=== PATIENT | female | born 1995 | race Two or more races ===

== ENCOUNTER 2024-05-20 18:04 | Emergency (ER) | payer MEDICAID, SELFPAY ==
[2024-05-20 18:54] VITALS: BP 137/85; PULSE 90; RESP 16; TEMP 37; O2SAT 100; BMI 21.4
--- NOTE | 2024-05-20 18:57 | PD.EDRME ---
Rapid Medical Screening Exam [facility] Arrival date/time: 05/20/24 18:04 Chief Complaint: Vaginal Bleeding Time Seen by Provider: 05/20/24 18:56 Vital signs: Vital Signs Temperature 98.6 F 05/20/24 18:54 Pulse Rate 90 05/20/24 18:54 Respiratory Rate 16 05/20/24 18:54 Blood Pressure 137/85 H 05/20/24 18:54 Pulse Oximetry (%) 100 05/20/24 18:54 Oxygen Delivery Method Room Air 05/20/24 18:54 RME Narrative: 29-year-old female who is presenting with spotting. Patient states she had a baby a year ago and has been breast-feeding she has also been on the minipill she is she does not know what her LMP was. Spotting for 1 day. She took an hCG at home 2 weeks ago which was positive.
--- NOTE | 2024-05-20 18:59 | XR_ITS ---
Examination: Complete OB ultrasound, less than 14 weeks, transabdominal Date and time of exam: May 20, 2024 1121 hrs. Indications: Vaginal bleeding beginning 2 days ago Technique: Obstetrical ultrasound images less than 14 weeks performed via transabdominal imaging Findings: A normal shaped single intrauterine gestation is present in the uterus. pole 0.7 cm corresponds to 6 weeks 4 days gestational age Cardiac motion 129 BPM Ultrasonographic survey of visible and placental structures unremarkable. Amniotic fluid volume appears appropriate for this estimated gestational age. Right ovary 2.9 x 2.3 x 2.5 cm arterial flow Left ovary obscured by bowel gas Impression: Viable intrauterine gestation 6 weeks 4 days.
[2024-05-20 19:47] LABS: Basophils # (Auto) 0.1 Thou/mm3 (0.0-0.2); Basophils % (Auto) 1 % (0-2.5); Eosinophils # (Auto) 0.1 Thou/mm3 (0.0-0.5); Eosinophils % (Auto) 1 % (0-10); Hematocrit 37.9 % (36.0-46.0); Hemoglobin 12.6 g/dL (12.0-16.0); Immature Granulocytes % (Auto) 0 % (0-0); Immature Granulocytes Auto 0.04 Thou/mm3 (0.00-0.00); Lymphocytes # (Auto) 2.2 Thou/mm3 (1.0-4.8); Lymphocytes % (Auto) 19 % (10-50); Mean Corpuscular HGB Conc 33.2 g/dl (31.0-37.0); Mean Corpuscular Hemoglobin 29.7 pg (25.0-35.0); Mean Corpuscular Volume 89 fL (80-100); Monocytes # (Auto) 0.7 Thou/mm3 (0.0-0.8); Monocytes % (Auto) 6 % (0-12); Neutrophils # (Auto) 8.4 Thou/mm3 (1.8-7.7); Neutrophils % (Auto) 74 % (37-80); Nucleated Red Blood Cell % 0 /100 WBC (0); Platelet Count 263 Thou/mm3 (140-440); RDW Standard Deviation 41.3 fL (36.4-46.3); Red Blood Count 4.24 Miln/mm3 (4.00-5.20); White Blood Count 11.4 Thou/mm3 (3.6-11.0)
[2024-05-20 20:03] LABS: Collection Type, Urine Voided; RBC,Urine 0 /hpf (0-3); WBC,Urine 0 /hpf (0-5)
[2024-05-20 20:16] LABS: Bilirubin,Urine Negative (Negative); Blood,Urine Negative (Negative); Clarity,Urine Turbid (Clear/Hazy); Color,Urine Yellow (Lt Yel-Yel); Glucose, Urine Negative (Negative); Ketones,Urine Negative (Negative); Leukocyte Esterase,Urine Negative (Negative); Nitrite,Urine Negative (Negative); PH,Urine 6.5 (5.0-7.0); Protein,Urine Trace (Neg - Trace); Specific Gravity,Urine 1.028 (1.001-1.035); Squamous Epithelial Cell,Urine 13 /hpf (0-5); Urobilinogen,Urine Negative mg/dL (0.0-1.0)
[2024-05-20 20:18] LABS: Alanine Aminotransferase < 7 U/L (10-49); Albumin, Serum 4.8 gm/dL (3.5-5.0); Albumin/Globulin Ratio 1.7 (1.2-2.2); Alkaline Phosphatase 79 U/L (46-116); Anion Gap 9 (7-16); Aspartate Amino Transferase < 10 U/L (0-34); BUN/Creatinine Ratio 14 Ratio (12-20); Bilirubin,Total 0.4 mg/dL (0.3-1.2); Blood Urea Nitrogen 7 mg/dL (9-23); Calcium 9.6 mg/dL (8.3-10.6); Calcium (Corrected) 9.6 mg/dL (8.5-10.1); Chloride 102 mMol/L (98-107); Creatinine (Component) 0.5 mg/dL (0.6-1.3); Estimated Creatinine Clearance 136.1 mL/min (>60); Globulin 2.8 gm/dL (2.3-3.5); Glucose 89 mg/dL (74-106); Osmolality,Calculated 267 (275-295); Potassium 3.7 mMol/L (3.4-5.1); Sodium 135 mMol/L (136-145); Total Protein 7.6 gm/dL (5.7-8.2); eGFR > 60 See Note
--- NOTE | 2024-05-21 00:27 | PD.EDPREG ---
ED OB Contraction Preg RMI/HPI General Chief complaint: Vaginal Bleeding Stated complaint: VAGINAL PAIN / SPOTTING AND Time Seen by Provider: 05/20/24 18:56 Arrival date/time: 05/20/24 18:04 29 year old female present to emergency room with c/o of vaginal spotting and pain for a 4 days. home test positive 2 weeks ago LOCATION: suprapubic SEVERITY: Symptoms are described as being severe with limitations on activities of daily living QUALITY: Symptoms are described as being cramping CONTEXT: The patient is unable to identify any inciting events. DURATION/TIMING: The symptoms started approximately 4 day ago and have been waxing/waning but always present without ever completely resolving. ASSOCIATED SYMPTOMS: The patient is unable to identify any other associated symptoms. MODIFYING FACTORS: The patient is unable to identify any alleviating or aggravating symptoms. PERTINENT ROS: denies trauma, denies domestic violence, no dysuria or hematuria, no orthostatic symptoms, no nausea or vomiting, no fevers, no anorexia, no diarrhea or constipation REVIEW OF SYSTEMS: See History of Present Illness - with the exception of those mentioned in the history of present illness, all other systems reviewed and reported as negative GENERAL: In general the patient is awake, interactive, in an emergency department gurney. HEAD/EYES/EARS/NOSE/THROAT: normo-cephalic, atraumatic, mucus membranes are moist, anicteric, palpebral conjunctiva is pink, trachea is midline. CARDIOVASCULAR: regular rate and regular rhythm, no murmurs, heart sounds are not distant, strong pulses in all four extremities that are equal and symmetric bilateral upper and lower extremities, normal capillary refill. CHEST/PULMONARY: normal chest rise and fall, good air movement, clear to auscultation bilaterally, normal inspiratory to expiratory ratios without evidence of respiratory distress. NECK: No midline/Paraspinal tenderness, no step off ROM/Strenght intact No Kernig and bruzinski sign. No trauma ABDOMEN: soft, not tender, no masses appreciated BACK: normal range of motion without pain. NEUROLOGICAL: cranio-facial features are symmetric, moves all four extremities equally without obvious limitations or weakness. EXTREMITY: no tenderness to palpation over the long bones or large joints of the bilateral upper and lower extremities, no joint swelling, no joint erythema, no signs of trauma, no unilateral leg swelling and no peripheral edema. SKIN: warm, dry, well-perfused, no jaundice, no rash, no telangiectasias or petechia. PSYCH: calm, cooperative, no evidence of psychosis or agitation RME / HPI RME / HPI Narrative: 29-year-old female who is presenting with spotting. Patient states she had a baby a year ago and has been breast-feeding she has also been on the minipill she is she does not know what her LMP was. Spotting for 1 day. She took an hCG at home 2 weeks ago which was positive. Related Data Home Medications ?Medication ?Instructions ?Recorded ?Confirmed vits no.129-ferrous fum 1 tab PO QDAY 05/19/23 05/19/23 27 mg iron-folic acid 800 mcg tablet ( One Daily) Previous Rx's ?Medication ?Instructions ?Recorded ibuprofen 600 mg tablet 600 mg PO Q6H PRN pain #30 tabs 05/19/23 promethazine 12.5 mg tablet 12.5 mg PO TID PRN nausea and 05/21/24 vomiting #30 tabs Allergies Allergy/AdvReac Type Severity Reaction Status Date / Time hydrocodone Allergy Severe SEIZURE Verified 05/20/24 18:06 Course Course Course Narrative: US: A normal shaped single intrauterine gestation is present in the uterus. pole 0.7 cm corresponds to 6 weeks 4 days gestational age Cardiac motion 129 BPM Ultrasonographic survey of visible and placental structures unremarkable. Amniotic fluid volume appears appropriate for this estimated gestational age. Right ovary 2.9 x 2.3 x 2.5 cm arterial flow Left ovary obscured by bowel gas Impression: Viable intrauterine gestation 6 weeks 4 days. This patient presents with vaginal bleeding in the first trimester. DDX includes ectopic, IUP, threatened/inevitable , along with completed . Patient is HDS and without a history of coagulopathy or infectious symptoms. Doubt alternate acute emergent pathology. Plan: bHCG, +/- basic labs, type and screen, TVUS, reassess Quality Measures none Orders Category Date Time Status US OB <= 14 weeks fetus Stat Exams 05/20/24 18:59 Completed ABO/RH Type Stat Lab 05/20/24 19:35 Completed Beta HCG,Quantitative Stat Lab 05/21/24 00:29 Received CBC Stat Lab 05/20/24 19:35 Completed CMP [Comprehensive Metabolic Panel] Stat Lab 05/20/24 19:35 Completed Urinalysis Stat Lab 05/20/24 19:45 Completed Vital Signs Vital signs: Vital Signs Temperature 98.6 F 05/20/24 18:54 Pulse Rate 90 05/20/24 18:54 Respiratory Rate 16 05/20/24 18:54 Blood Pressure 137/85 H 05/20/24 18:54 Pulse Oximetry (%) 100 05/20/24 18:54 Oxygen Delivery Method Room Air 05/20/24 18:54 OB/Uterine Contractions Patient data External records reviewed:: Other (specify) Clinical information provided by:: patient Social determinants that could affect healthcare access:: none Patient has the following chronic illnesses:: none How is presenting disease/condition affected by chronic disease/condition?: no chronic disease Evaluation data The following diagnostics were reviewed and interpreted by me:: lab results and radiology exam(s) Lab and/or radiology exams considered but not ordered:: none Interpretation Summary: US: A normal shaped single intrauterine gestation is present in the uterus. pole 0.7 cm corresponds to 6 weeks 4 days gestational age Cardiac motion 129 BPM Ultrasonographic survey of visible and placental structures unremarkable. Amniotic fluid volume appears appropriate for this estimated gestational age. Right ovary 2.9 x 2.3 x 2.5 cm arterial flow Left ovary obscured by bowel gas Impression: Viable intrauterine gestation 6 weeks 4 days. Medications / Prescriptions Medications or Prescriptions considered but not ordered:: none Medication administrations:: none Consultations Consultation(s) initiated? (list below): No Diagnosis OB Contractions Differential Diagnosis: other (miscarriage, UTI, ectopic, ) Most likely diagnosis given after review of the tests above:: vaginal bleeding during Admission Indicated Explain why admission is indicated or not indicated:: none Admission Request Was there a request for admission?: No Disposition Plan Disposition Plan: Discharge Discharge Attestation Discharge Attestation: The patient and all family members were given an opportunity to ask questions and understood the discharge instructions. Discharge instructions specifically effects, indications for sooner follow up or return to the emergency department, and the expected course of current diagnosis. Patient condition: Stable Discharge Plan Plan Patient Disposition: HOME (Self Care) Health Concerns: Follow with PMD/OB as directed Return to ED if sx worsen Prescriptions/Referrals Prescriptions/Med Rec: New promethazine 12.5 mg tablet 12.5 mg PO TID PRN (Reason: nausea and vomiting) Qty: 30 0RF No Action One Daily 27 mg iron- 800 mcg tablet 1 tab PO QDAY Patient Comments: Take 1 tablet by mouth once a day ibuprofen 600 mg tablet 600 mg PO Q6H PRN (Reason: pain) Qty: 30 0RF Referrals: No Primary/Family,Physician [Primary Care Provider] - In 1 week Problem List Clinical Impression: Vaginal bleeding during Patient/Caregiver Discharge Instructions Education Materials: Bleeding During Early Print Language: Romanian Stand Alone Forms: [facility]dee Award Info., Patient Portal Info Letter
[2024-05-21 01:04] VITALS: BP 121/78; PULSE 72; RESP 16; TEMP 36.8; O2SAT 99
[2024-05-21 02:03] LABS: Beta HCG,Quantitative 120883 mIU/mL (<5.0)
== END 2024-05-21 01:06 | disposition home or self-care (01) ==
PROVIDERS: Physician Assistant; Emergency Provider Emergency Medicine
DX: O20.9 Hemorrhage in early pregnancy, unspecified (principal); Z3A.01 Less than 8 weeks gestation of pregnancy
CPT/HCPCS: 36415; 76801; 80053; 81001; 84702; 85025; 86900; 86901; 99284

== ENCOUNTER 2024-12-17 07:19 | Observation (INO) | payer MEDICAID, SELFPAY ==
[2024-12-17 07:20] VITALS: BP 112/72; PULSE 77; RESP 18; RESP 98; TEMP 36.6; BMI 26.6
[2024-12-17 07:24] VITALS: BP 112/72; PULSE 82; PULSE 87; RESP 18; TEMP 36.6; O2SAT 97
[2024-12-17 07:29] VITALS: PULSE 90; O2SAT 97
[2024-12-17 07:34] VITALS: PULSE 84; O2SAT 94
[2024-12-17 07:35] VITALS: PULSE 88; O2SAT 94
[2024-12-17 07:51] VITALS: BP 108/66; PULSE 73; RESP 18
== END 2024-12-17 07:50 | disposition home or self-care (01) ==
PROVIDERS: Admitting Provider Obstetrics & Gynecology; Visit Provider Obstetrics & Gynecology
DX: O47.1 False labor at or after 37 completed weeks of gestation (principal); Z3A.37 37 weeks gestation of pregnancy
CPT/HCPCS: 59899

== ENCOUNTER 2024-12-17 15:14 | Inpatient (IN) | payer MEDICAID, SELFPAY ==
[2024-12-17] VITALS (13 sets, daily range): BP systolic 99–113; BP diastolic 58–76; PULSE 73–93; RESP 18–96; TEMP 36.6–36.9; O2SAT 95–96; BMI 26.6; BMI 26.5
[2024-12-17 16:32] LABS: Basophils # (Auto) 0.1 Thou/mm3 (0.0-0.2); Basophils % (Auto) 1 % (0-2.5); Eosinophils # (Auto) 0.1 Thou/mm3 (0.0-0.5); Eosinophils % (Auto) 1 % (0-10); Hematocrit 37.2 % (36.0-46.0); Hemoglobin 12.3 g/dL (12.0-16.0); Immature Granulocytes Auto 0.21 Thou/mm3 (0.00-0.00); Lymphocytes # (Auto) 3.0 Thou/mm3 (1.0-4.8); Lymphocytes % (Auto) 23 % (10-50); Mean Corpuscular HGB Conc 33.1 g/dl (31.0-37.0); Mean Corpuscular Hemoglobin 29.8 pg (25.0-35.0); Mean Corpuscular Volume 90 fL (80-100); Monocytes # (Auto) 0.8 Thou/mm3 (0.0-0.8); Monocytes % (Auto) 6 % (0-12); Neutrophils # (Auto) 8.6 Thou/mm3 (1.8-7.7); Neutrophils % (Auto) 67 % (37-80); Nucleated Red Blood Cell # 0.00 Thou/mm3 (0.00-0.00); Nucleated Red Blood Cell % 0 /100 WBC (0); Platelet Count 343 Thou/mm3 (140-440); RDW Standard Deviation 43.6 fL (36.4-46.3); Red Blood Count 4.13 Miln/mm3 (4.00-5.20); White Blood Count 12.8 Thou/mm3 (3.6-11.0)
[2024-12-17] MEDS: Ampicillin Inj 2,000 MG in SODIUM CHLORIDE 0.9% (POP) 100 ML 200 MG IV (16:48)
[2024-12-17] MEDS: RINGERS LACTATED 1000 ML 1,000 ML 100 ML IV (16:48)
[2024-12-17 17:15] LABS: Syphilis Nonreactive (Nonreactive)
--- NOTE | 2024-12-17 18:24 | PD.LDHP ---
Documentation for date of: 12/17/24 OB Labor/Induct. HPI History of Present Illness Chief complaint: Contractions : 5 Para: 3 Term pregnancies: 2 pregnancies: 1 Living children: 3 History of Abortions: Spontaneous and Elective: 1 History of Vaginal deliveries: 3 History of sections: No History of : Yes JERED: 01/06/25 Gestational Age (weeks): 37 Gestational Age (days): 1 History of present illness: Patient is a 29-year-old 5 para 2-1-1-3 who presents to labor and delivery triage with contractions that started earlier this morning. On exam she was noted to be 3 cm dilated. Patient denies any leakage of fluid or vaginal bleeding. Patient reports adequate movements. Patient received care at [facility]. All her records were available for review History of Present Adequate Care: No Labs Labs: Negative: RPR, Hepatitis B, Rubella Titre, HIV, Chlamydia and Gonorrhea and Unknown: Herpes Type 1, Herpes Type 2, Group Beta Strep and Covid-19 Review of Systems Review of Systems Systems Reviewed: All systems reviewed, normal except as documented Past Medical History Surgical History SURGICAL: Negative Section Meds Home Medications and Allergies Home Medications ?Medication ?Instructions ?Recorded ?Confirmed ?Type vits no.129-ferrous fum 1 tab PO QDAY 05/19/23 05/19/23 History 27 mg iron-folic acid 800 mcg tablet ( One Daily) Allergies Allergy/AdvReac Type Severity Reaction Status Date / Time hydrocodone Allergy Severe SEIZURE Verified 05/20/24 18:06 OB Exam Physical Exam Vital signs: Temp Pulse Resp BP Pulse Ox 97.9 F 79 18 110/72 95 12/17/24 15:20 12/17/24 18:16 12/17/24 15:20 12/17/24 18:16 12/17/24 15:40 Constitutional Constitutional: no acute distress Routine HEENT Exam Head: Present normocephalic and atraumatic Eye: Present EOMI and PERRL ENT: Present mucous membranes moist Routine Neck Exam Neck: Present supple and trachea midline Routine Cardiovascular Exam Cardiovascular: Present RRR Routine Abdominal Exam Abdominal: Present soft and normoactive bowel sounds Detailed Labor and Delivery Exam Dilation (cm): 3 Effacement (%): 50 Cervix position: mid station: -3 Consistency: soft Presentation: Vertex Baseline heart rate: 140 monitor accelerations: 15x15 monitor decelerations: None Contraction frequency (min): 5-8 Routine Extremities Exam Extremities: Present full ROM Routine Skin Exam Skin: Present intact, dry and warm Routine Neurological Exam Neurological: Present alert, oriented X3 and CN II-XII intact Routine Psychiatric Exam Psychiatric: Present normal affect and normal thought process OB Results Labs 12/17/24 16:13 Labs: Short CBC 12/17/24 Range/Units 16:13 WBC 12.8 H (3.6-11.0) Thou/mm3 Hgb 12.3 (12.0-16.0) g/dL Hct 37.2 (36.0-46.0) % Plt Count 343 (140-440) Thou/mm3 OB Assessment & Plan Assessment and Plan (1) Uterine contractions: Status: Acute Assessment and plan: Patient is in early/latent phase of labor admit to inpatient status IV access, LR at 125 cc/h, labs to include CBC type and screen and RPR Group B streptococcus positive, stat ampicillin prophylaxis Continuous maternal monitoring Patient was counseled about the risks of prolonged labor, possibility of needing operative vaginal delivery as well as the possibility of requiring urgent if the clinical situation warranted Oxytocin augmentation if contractions spaced out Epidural whenever desired Anticipate vaginal delivery (2) Term : Status: Acute
[2024-12-17] MEDS: RINGERS LACTATED 500 ML 500 ML 999 ML IV (20:00)
[2024-12-17] MEDS: Ampicillin Inj 1,000 MG in SODIUM CHLORIDE 0.9% (Popper) 50 ML 50 MG IV (20:58)
[2024-12-18] VITALS (154 sets, daily range): BP systolic 91–133; BP diastolic 51–110; PULSE 58–98; RESP 19–20; TEMP 36.6–37.1; O2SAT 87–99
--- NOTE | 2024-12-18 07:30 | PD.LDPN ---
Documentation for date of: 12/18/24 OB Labor Progress Note Pelvic Exam Dilation (cm): 6 Effacement (%): 70 station: -3 Amniotic membrane status: Intact Comments: Vtx Intact. Contractions Monitor mode: External Contraction frequency: 0 Contraction intensity: Mild Status status: Category l Assessment and Plan Comments: Augment with Pitocin Anticpate Ampicillin for GBS unknown.
[2024-12-18] MEDS: RINGERS LACTATED 1000 ML 1,000 ML 100 ML IV (09:41)
[2024-12-18] MEDS: Ampicillin Inj 2,000 MG in SODIUM CHLORIDE 0.9% (POP) 100 ML 200 MG IV (09:41)
[2024-12-18] MEDS: OXYTOCIN in NS 30 units 30 UNIT/500 ML BAG IV (11:02)
[2024-12-18] MEDS: Ampicillin Inj 1,000 MG in SODIUM CHLORIDE 0.9% (Popper) 50 ML 50 MG IV ×3 (13:48→20:49)
[2024-12-18] MEDS: fentaNYL CIT INJ 50 mCg/ML AMP 2ML 100 MCG IVP (23:50)
[2024-12-19] VITALS (17 sets, daily range): BP systolic 99–130; BP diastolic 58–89; PULSE 64–95; RESP 16–20; TEMP 36.7–37.2; O2SAT 95–100
[2024-12-19] MEDS: Ampicillin Inj 1,000 MG in SODIUM CHLORIDE 0.9% (Popper) 50 ML 50 MG IV (00:44)
--- NOTE | 2024-12-19 01:06 | PD.LDPN ---
Documentation for date of: 12/19/24 OB Labor Progress Note Pelvic Exam Dilation (cm): 6 Effacement (%): 70 station: -1 Amniotic membrane status: Intact Contractions Monitor mode: External Contraction frequency: 3-4 Contraction intensity: Mild Status status: Category l Assessment and Plan Comments: AROM clear fluid Compound presentation (hand) Emergency Delivery Chelsea Mohamud, RN will keep hand in vagina making sure no cord prolapse until time of incision Informed consent was obtained, the patient made aware the risk complication alternative benefits of delivery and she agrees.
[2024-12-19] MEDS: METOCLOPRAMIDE INJ 5 MG/ML VIAL 2 ML 10 MG IVP (01:16)
[2024-12-19] MEDS: FAMOTIDINE INJ 10 MG/ML VIAL 2 ML 20 MG IV (01:16)
--- NOTE | 2024-12-19 01:16 | ESDS_ITS ---
DS: Providers Provider Date of admission: 12/17/24 15:37 Primary care physician: Physician No Primary/Family Admitting Provider: Sim Mueller MD Attending Provider on Admission: Pablo Muhammad MD Attending Provider on DC: Pablo Muhammad MD Discharging Provider: Pablo Muhammad MD DS: Diagnosis Problem List Completed Was Problem List Reviewed/Reconciled?: Yes Summary/Hosp Course Brief History: Patient is a 29-year-old 5 para 2-1-1-3 who presents to labor and delivery triage with contractions that started earlier this morning. On exam she was noted to be 3 cm dilated. Patient denies any leakage of fluid or vaginal bleeding. Patient reports adequate movements. Patient received care at [facility]. All her records were available for review Peripartum Data Delivery Method: Low Transverse 1: Gender: Male Time Spent with Patient Time attestation: Total time spent providing and/or coordinating discharge services: Exam Vital Signs Temp Pulse Resp BP Pulse Ox O2 Del Method 97.9 F 64 19 103/61 98 Room Air 12/18/24 19:07 12/19/24 00:38 12/18/24 16:31 12/19/24 00:38 12/18/24 20:49 12/18/24 07:00 Discharge Plan Plan Patient Disposition: HOME (Self Care) Patient condition on transfer: Stable Prescriptions/Referrals Prescriptions/Med Rec: New ibuprofen 800 mg tablet 800 mg PO Q6H PRN (Reason: pain) Qty: 30 0RF Continued One Daily 27 mg iron- 800 mcg tablet 1 tab PO QDAY Patient Comments: Take 1 tablet by mouth once a day Discontinued promethazine 12.5 mg tablet 12.5 mg PO TID PRN (Reason: nausea and vomiting) Qty: 30 0RF ibuprofen 600 mg tablet 600 mg PO Q6H PRN (Reason: pain) Qty: 30 0RF Referrals: No Primary/Family,Physician [Primary Care Provider] - Patient/Caregiver Discharge Instructions Print Language: Nepalese Stand Alone Forms: Haydee Award Info., Patient Portal Info Letter Planned Discharge Date 12/21/24
--- NOTE | 2024-12-19 01:16 | ESOP_ITS ---
Operative Note - TIPPLE REPAIRER Procedure Date of procedure: 12/19/24 Procedure Performed: Primary Low Transverse Delivery via Pfannesteil Skin Incision Indication: IUP 37w2d +GBS Advanced Cervical Dilation Pitocin Augmentation AROM Compound Presentation (hand) Pre-Op diagnosis: IUP 37w2d +GBS Advanced Cervical Dilation Pitocin Augmentation AROM Compound Presentation (hand) Post-Op diagnosis: IUP 37w2d +GBS Advanced Cervical Dilation Pitocin Augmentation AROM Compound Presentation (hand) Uterine atony Anesthesia type: Spinal Procedure description: After proper informed consent was obtained and the patient was made aware of the risks, complications, alternatives and benefits of the proposed procedure she was taken to the operating room. Patient was taken to the OR with LEANN Vann placing hands in vagina making sure the hand does not prolapse to arm and to prevent a cord prolapse. She underwent induction of spinal anesthesia on her right side. She did not sit up for the rapid spinal. She was prepped and draped in the usual sterile fashion. A timeout was performed.? A Pfannenstiel skin incision was made with the scalpel and carried through to the underlying layer of fascia with the Bovie. The fascia was nicked in the midline incision and the incision was extended bilaterally with the Bovie. The inferior aspect of the fascial incision was grasped with Kenneth clamps elevated and the underlying rectus muscle dissected off with the Bovie. The superior aspect the fascial incision was grasped with Kenneth clamps elevated and the underlying rectus muscle dissected off with the Bovie. The rectus muscles were in the midline. The peritoneum was grasped between 2 Valle clamps and entered sharply with the Metzenbaum scissors. The peritoneum was extended superiorly and inferiorly with good visualization of the bladder. The vesicouterine peritoneum was incised transversely and the bladder flap created digitally. A Neel blade was inserted. At this point Soo NORIEGA took her hand out of the vagina and moved away from under the drape. A low transverse incision was made in the uterus with a scapel and the incision was extended digitally. The 's head delivered and the mouth and nose were suctioned with the bulb suction. The shoulder and body delivered atraumatically. The cord was clamped after 30 second delayed cord clamping and the cord was cut.? The infant was handed off to the waiting Pediatric staff, cord blood was collected for lab testing. The placenta was removed complete and intact. The uterus was exteriorized and cleared of all clots and debris. The uterine incision was closed with #1-0 chromic catgut suture in a running interlocking fashion. A second layer of the same suture was used to imbricate the first layer and obtain excellent hemostasis. The vesicouterine peritoneum was closed with 2-0 chromic catgut suture in a running fashion. The firm uterus was returned to the abdomen. The gutters were cleared of all clots and debris. The peritoneum was closed with 0 chromic catgut suture in running fashion. The rectus muscle was closed with 0 chromic catgut suture. The fascia was closed with 0 Vicryl beginning at each angle and ending in the center in a running fashion. The subcutaneous tissue was irrigated with warmed normal saline solution and found to be hemostatic. The subcutaneous tissue was closed with 2-0 chromic catgut suture in a running fashion. The skin was closed with 4-0 Monocryl. A Dermabond Prineo dressing was applied and a sterile pressure dressing was applied.? She tolerated the procedure well. Counts were correct. I discussed with the patient the nature of her condition, intraoperative findings and expectation for recovery all? questions answered. Specimen: none Estimated blood loss (ml): 500 Findings: Viable Female Infant 9/9 Clear amniotic fluid. Uterine atony responding to uterotonics. Uterus otherwise appeared grossly wnl. Fallopian tubes and ovaries wnl. Complications: none Surgical staff Vik SANCHEZ Diagnosis Problem List Completed Was Problem List Reviewed/Reconciled?: Yes
[2024-12-19] MEDS: ceFAZolin/D5W 2 GM IV 2 GM/100 ML BAG IV ×4 (01:17→22:06)
--- NOTE | 2024-12-19 02:22 | PD.LDDELS ---
Data ([place]) Data Hx Section: No : 4 Term: 2 : 1 Livin Abortions: Spontaneous & Theraputic: 1 Delivery Data ([place]) Labor Data Initiation of labor: Augmentation Induction/Augmentation Agent: Pitocin and Artificial ROM ROM date: 12/19/24 ROM time: 01: Amniotic membrane rupture type: Artificial Amniotic fluid description: Clear Delivery Data EDC: 01/07/25 EDC calculated by:: LMP/early US confirmation Justice delivery date: 12/19/24 Justice delivery time: Gestational age (weeks): 37 Gestational age (days): 2 Placenta delivery date: 12/19/24 Placenta delivery time: Delivered by: Pablo Muhammad Delivery nurse: daniel rossi nurse: renetta khan Support Architect at delivery: No Support person(s) at delivery: FOB Other staff at delivery: see operative note Delivery Method Delivery method: Low Transverse Presentation: Vertex position: other (Compound (hand)) Anesthesia Type Anesthesia Type: Spinal Anesthesia type: Spinal Placenta Placenta delivery description: Manual Removal Cord blood sent to lab: Yes cord blood collection: Cord Blood Type Episiotomy Episiotomy description: None EBL Estimated blood loss (ml): 500 Umbilical Cord cord description: 3 Vessels Complications Complications: Uterine atony responded to uterotonics. Justice Data ([place]) Justice Data order: 1 's gender: Female Identification band number: [id number] weight (gms): 6 lb 10.88 oz Weight (pounds): 6 lbs and 10.9 ozs Justice length: 18.9 in 1 minute: 9 5 minutes: 9
[2024-12-19] MEDS: OXYTOCIN in NS 20 units 20 UNIT/1,000 ML BAG 125 UNIT IV (02:45)
[2024-12-19 09:47] LABS: Basophils # (Auto) 0.1 Thou/mm3 (0.0-0.2); Basophils % (Auto) 0 % (0-2.5); Eosinophils # (Auto) 0.0 Thou/mm3 (0.0-0.5); Eosinophils % (Auto) 0 % (0-10); Hematocrit 35.9 % (36.0-46.0); Hemoglobin 11.9 g/dL (12.0-16.0); Immature Granulocytes Auto 0.12 Thou/mm3 (0.00-0.00); Lymphocytes # (Auto) 2.2 Thou/mm3 (1.0-4.8); Lymphocytes % (Auto) 12 % (10-50); Mean Corpuscular HGB Conc 33.1 g/dl (31.0-37.0); Mean Corpuscular Hemoglobin 29.9 pg (25.0-35.0); Mean Corpuscular Volume 90 fL (80-100); Monocytes # (Auto) 1.0 Thou/mm3 (0.0-0.8); Monocytes % (Auto) 5 % (0-12); Neutrophils # (Auto) 14.7 Thou/mm3 (1.8-7.7); Neutrophils % (Auto) 81 % (37-80); Nucleated Red Blood Cell # 0.00 Thou/mm3 (0.00-0.00); Nucleated Red Blood Cell % 0 /100 WBC (0); Platelet Count 300 Thou/mm3 (140-440); RDW Standard Deviation 43.1 fL (36.4-46.3); Red Blood Count 3.98 Miln/mm3 (4.00-5.20); White Blood Count 18.1 Thou/mm3 (3.6-11.0)
[2024-12-19] MEDS: RINGERS LACTATED 1000 ML 1,000 ML 100 ML IV (12:18)
[2024-12-19] MEDS: KETOROLAC INJ 30 MG/ML VIAL IVP ×2 (14:45→21:07)
[2024-12-20 04:17] VITALS: BP 93/55; PULSE 71; RESP 16; TEMP 36.9
[2024-12-20] MEDS: KETOROLAC INJ 30 MG/ML VIAL IVP (05:45)
[2024-12-20] MEDS: ceFAZolin/D5W 2 GM IV 2 GM/100 ML BAG IV (05:46)
[2024-12-20 08:00] VITALS: BP 124/82; PULSE 82; RESP 16; TEMP 36.8; O2SAT 99
[2024-12-20] MEDS: SIMETHICONE 80 MG CHEW PO ×2 (08:39→17:19)
[2024-12-20] MEDS: DOCUSATE SOD 100 MG CAPSULE PO (08:39)
[2024-12-20] MEDS: ACETAMINOPHEN 325 MG TABLET 650 MG PO ×2 (08:39→17:19)
[2024-12-20] MEDS: ENOXAPARIN SOD INJ 40 MG/0.4 ML SYRINGE SC (08:39)
--- NOTE | 2024-12-20 11:05 | CHAP ---
Gave a blessing on and family.
[2024-12-20 12:00] VITALS: BP 110/65; PULSE 65; RESP 16; TEMP 36.7; O2SAT 99
[2024-12-20] MEDS: IBUPROFEN TAB 400 MG TABLET 800 MG PO ×2 (12:59→21:39)
[2024-12-20 15:44] VITALS: BP 115/76; PULSE 68; RESP 18; TEMP 36.6; O2SAT 99
[2024-12-20] MEDS: Milk Of Magnesia Susp 30 ML UDC PO (17:19)
[2024-12-20 20:08] VITALS: BP 119/64; PULSE 63; RESP 16; TEMP 36.4; O2SAT 96
--- NOTE | 2024-12-20 20:32 | ESPR_ITS ---
Subjective Subjective Interval history: The patient is a 35-year-old G5 now P4014 postop day #1 status post primary C- section for compound presentation. All care is up-to-date in the chart with Dr Muhammad. He also performed her which was around 1:00 in the morning on December 19. Today the patient is resting comfortably in bed in her own pajamas. Her baby is at bedside and she is breast-feeding. Her is at bedside. She states she is up walking around tolerating a general diet. A catheter is out of her bladder she states her bleeding is minimal. She is having some pain but this is controlled with oral pain medications. Exam Vital Signs Temp Pulse Resp BP Pulse Ox O2 Del Method 97.9 F 68 18 115/76 99 Room Air 12/20/24 15:44 12/20/24 15:44 12/20/24 15:44 12/20/24 15:44 12/20/24 15:44 12/20/24 15:44 Narrative Exam Fundus is firm nontender. Her incision is clean dry and intact. Objective Labs 12/19/24 09:03 Assessment & Plan Problem List (1) care following delivery: Problem details: Patient is doing well. Encourage ambulation. Encourage pain medication if needed. Recheck CBC in AM. Probable discharge home tomorrow on postoperative day #2. Status: Acute Time Spent With Patient Time: Total time spent is greater than 50% in coordination of care (as documented) at patient's floor/unit and/or counseling patient: Time with patient: less than 15 minutes
[2024-12-21] MEDS: ACETAMINOPHEN 325 MG TABLET 650 MG PO (03:11)
[2024-12-21 03:15] VITALS: BP 132/64; PULSE 64; RESP 16; TEMP 36.6; O2SAT 96
[2024-12-21 05:45] LABS: Basophils # (Auto) 0.1 Thou/mm3 (0.0-0.2); Basophils % (Auto) 0 % (0-2.5); Eosinophils # (Auto) 0.3 Thou/mm3 (0.0-0.5); Eosinophils % (Auto) 2 % (0-10); Hematocrit 35.2 % (36.0-46.0); Hemoglobin 11.3 g/dL (12.0-16.0); Immature Granulocytes Auto 0.14 Thou/mm3 (0.00-0.00); Lymphocytes # (Auto) 2.3 Thou/mm3 (1.0-4.8); Lymphocytes % (Auto) 19 % (10-50); Mean Corpuscular HGB Conc 32.1 g/dl (31.0-37.0); Mean Corpuscular Hemoglobin 29.7 pg (25.0-35.0); Mean Corpuscular Volume 92 fL (80-100); Monocytes # (Auto) 0.6 Thou/mm3 (0.0-0.8); Monocytes % (Auto) 5 % (0-12); Neutrophils # (Auto) 8.8 Thou/mm3 (1.8-7.7); Neutrophils % (Auto) 72 % (37-80); Nucleated Red Blood Cell # 0.00 Thou/mm3 (0.00-0.00); Nucleated Red Blood Cell % 0 /100 WBC (0); Platelet Count 319 Thou/mm3 (140-440); RDW Standard Deviation 45.9 fL (36.4-46.3); Red Blood Count 3.81 Miln/mm3 (4.00-5.20); White Blood Count 12.2 Thou/mm3 (3.6-11.0)
--- NOTE | 2024-12-21 07:02 | ESPR_ITS ---
RE: MORRIS ERICKSON : 1995 DATE OF SERVICE: 12/21/2024 SUBJECTIVE: Postop day #2, patient denies any problem or complaint. She is voiding. She is ambulating. She tolerated diet. She is passing flatus. She denies any excessive vaginal bleeding. She denies any dizziness or lightheadedness. She denies any chest pain, palpitations, shortness of breath or lower extremity pain. OBJECTIVE: Vital Signs: Blood pressure 132/64, heart rate 64, respirations 16, temperature is 97.9, and pulse oximetry is 96% on room air. Lungs: Clear to auscultation bilaterally. Heart: Regular rate and rhythm. Abdomen: Incision is clean and intact. Fundus is firm. Lochia is scant. Extremities: Nontender. ASSESSMENT: Postoperative day #2, status post delivery. PLAN: Discharge home. Discharge instructions given. Follow up in the office in 1 week. DT: 06:41:02 TT: 07:00:00 Ref: [id number] - TID: [id number]
[2024-12-21 08:15] VITALS: BP 118/79; PULSE 67; RESP 18; TEMP 36.7; O2SAT 97
[2024-12-21] MEDS: ENOXAPARIN SOD INJ 40 MG/0.4 ML SYRINGE SC (08:27)
[2024-12-21] MEDS: IBUPROFEN TAB 400 MG TABLET 800 MG PO (08:28)
[2024-12-21] MEDS: DOCUSATE SOD 100 MG CAPSULE PO (08:28)
--- NOTE | 2024-12-21 09:50 | PC.NURSE ---
Arnold Mcgarry RN was preparing paperwork for discharge, RN noticed consents for section, blood, and anesthesia had be improperly signed, CARLOS Humphrey consulted with Gisel Manzano from ICU. Arnold Mcgarry RN signed consents is correct spot and reviewed with pt.
== END 2024-12-21 10:35 | disposition home or self-care (01) | DRG 540 ==
LOC: S4SX 12-18 07:28 → S4NX 12-19 09:02 → S4SX 12-29 08:01
PROVIDERS: Obstetrics & Gynecology; Admitting Provider Obstetrics & Gynecology; Visit Provider Specialist
PROC: 10D00Z1 Extraction of Products of Conception, Low, Open Approach (ICD-10-PCS; CPT 59514; principal; 2024-12-19 01:45)
DX: O99.824 Streptococcus B carrier state complicating childbirth (principal); Z37.0 Single live birth; Z3A.37 37 weeks gestation of pregnancy; O32.6XX0 Maternal care for compound presentation, not applicable or unspecified; O62.2 Other uterine inertia
CPT/HCPCS: 36415; 59409; 85025; 86780; 86850; 86900; 86901; 94762; A4314; A4649; J0290; J0689; J1650; J1885; J2175; J2210; J2250; J2274; J2371; J2590; J2704; J2765; J3010; J3490; J7050; J7120; S0191; A9270; J2270